=== PATIENT | male | born 1970 | race African-American/Black ===

== ENCOUNTER 2016-07-02 17:31 | Emergency (ER) | payer MEDICAID ==
[~2016-07-02] VITALS: Ht 175.3 cm; Wt 102.1 kg
[~2016-07-02 17:31] MED LIST: ASPIR 8181 MG ORAL; ATORVASTATIN CA20 MG ORAL; BACTRIM-DS1 EA ORAL; CEPHALEXIN500 M1 ORAL; LEVEMIR FL100 UNIT/1 SUBQ; LOVENOX150 MG/1 M SUBQ; METOPROLOL SUCC50 MG ORAL; NIACIN500 M2 ORAL; NOVOLIN R100 UNIT/1 SUBQ
[2016-07-02] MEDS ORDERED: NKM (17:58)
[2016-07-02] MEDS ORDERED: Metoprolol 5mg/5ml Inj IVP ONE (18:15)
[2016-07-02] MEDS ORDERED: Aspirin Baby 81mg ORAL ONE (18:15)
--- NOTE | 2016-07-02 18:38 | Emergency Room Report ---
History of Present Illness General Chief Complaint: Hypertension Source: Patient Present Illness HPI Patient is a 45-year-old male who presented after having increased chest tightness. Patient had been off of his blood pressure medication for approximately one month. Patient had prior history of diet-controlled diabetes. Patient's most recent hemoglobin A1c was slightly below 6. The patient reported having intermittent chest pressure. The patient had been previously hospital in 2003 after an onset of diabetes. He had run out of his medication. The patient was having additionally right-sided nasal congestion and headache if worsening for the past few weeks this was associated with some dark nasal discharge. Allergies: Coded Allergies: No Known Allergies (Unverified , 01/30/14) Patient History Past Medical History: see triage record Reviewed Nursing Documentation: PMH: Agreed, PSxH: Agreed Nursing Documentation-PMH Hx Cardiac Problems: No Hx Hypertension: Yes Hx Diabetes: Yes Hx Cancer: No Hx Gastrointestinal Problems: No Hx Neurological Problems: No Review of Systems All Other Systems: negative except mentioned in HPI Physical Exam Vital Signs Date Time Temp Pulse Resp B/P Pulse Ox O2 Delivery O2 Flow Rate FiO2 07/02/16 17:52 98.4 96 16 159/112 97 Room Air Sp02 EP Interpretation: reviewed, normal General Appearance: normal inspection, well appearing, no apparent distress, alert, GCS 15 Head: atraumatic ENT: normal ENT inspection, hearing grossly normal, normal voice Neck: normal inspection, full range of motion, supple, no bony tend Respiratory: normal inspection, lungs clear, normal breath sounds, no respiratory distress, no retraction, no wheezing Cardiovascular #1: regular rate, rhythm, no edema Gastrointestinal: normal inspection, normal bowel sounds, non tender, soft, no guarding, no hernia Genitourinary: no CVA tenderness Musculoskeletal: normal inspection, back normal, normal range of motion Neurologic: normal inspection, alert, oriented x3, responsive, reexaminer III-XII nml as tested, speech normal Psychiatric: normal inspection, judgement/insight normal, mood/affect normal Skin: normal inspection, normal color, no rash Medical Decision Making Diagnostic Impression: Primary Impression: ACS (acute coronary syndrome) Additional Impressions: Diabetes Hypertension Maxillary sinus mass ER Course Patient presented for chest pain.Differential diagnosis included but was not limited to acute coronary syndrome, pulmonary embolism, pneumonia, aortic dissection, shingles, pneumothorax, aortic dissection, esophageal rupture, pericarditis. Because of complexity of patient's case laboratory testing and imaging studies were ordered. EKG interpreted by me showed normal sinus rhythm with a rate of 82 J-point elevation was noted in the septal leads there is inferior ST depression and T- wave inversion which is changed from the patient's previous EKG from 2014. Patient was given IV metoprolol and aspirin. Right-sided EKG showed no elevation of ST segments. Patient was noted to have positive troponin as well as the positive CK-MB 0.75 and 10 respectively. The patient was given IV heparin bolus. The patient denied any chest pressure or tightness. The patient was discussed with Dr. Harris from [facility] for transfer for higher level of care. Dr. Harris states that [facility] has a cardiac catheterization lab with which is not available at [facility]. The patient was noted to have a headache and CT imaging of the head was obtained. Ct Head reading: Hyperdense mass measuring about 112 HU opacifying the entire visualized maxillary sinus, extending to ethmoid air cells and right frontal sinus suggest neoplastic etiologies, fungal infection and less likely inspissated secretion. Followup is recommended. Labs Test 07/02/16 18:40 White Blood Count 5.5 K/UL (4.8-10.8) Red Blood Count 4.57 M/UL (4.70-6.10) Hemoglobin 13.8 G/DL (14.2-18.0) Hematocrit 39.6 % (42.0-52.0) Mean Corpuscular Volume 87 FL (80-99) Mean Corpuscular Hemoglobin 30.2 PG (27.0-31.0) Mean Corpuscular Hemoglobin Concent 34.8 G/DL (32.0-36.0) Red Cell Distribution Width 11.0 % (11.6-14.8) Platelet Count 215 K/UL (150-450) Mean Platelet Volume 9.8 FL (6.5-10.1) Neutrophils (%) (Auto) 66.5 % (45.0-75.0) Lymphocytes (%) (Auto) 23.9 % (20.0-45.0) Monocytes (%) (Auto) 4.5 % (1.0-10.0) Eosinophils (%) (Auto) 3.5 % (0.0-3.0) Basophils (%) (Auto) 1.6 % (0.0-2.0) Urine Color Pale yellow Urine Appearance Clear Urine pH 6 (4.5-8.0) Urine Specific [place] 1.015 (1.005-1.035) Urine Protein Negative (NEGATIVE) Urine Glucose (UA) 2+ (NEGATIVE) Urine Ketones 1+ (NEGATIVE) Urine Occult Blood Negative (NEGATIVE) Urine Nitrite Negative (NEGATIVE) Urine Bilirubin Negative (NEGATIVE) Urine Urobilinogen Normal MG/DL (0.0-1.0) Urine Leukocyte Esterase Negative (NEGATIVE) Sodium Level 137 mEQ/L (135-145) Potassium Level 3.8 mEQ/L (3.4-4.9) Chloride Level 96 mEQ/L (98-107) Carbon Dioxide Level 24 mEQ/L (20-30) Anion Gap 17 (5-15) Blood Urea Nitrogen 12 mg/dL (7-23) Creatinine 1.0 mg/dL (0.7-1.2) Estimat Glomerular Filtration Rate > 60 mL/min (>60) Glucose Level 212 mg/dL (74-106) Calcium Level 9.4 mg/dL (8.6-10.2) Total Bilirubin 0.7 mg/dL (0.0-1.2) Aspartate Amino Transf (AST/SGOT) 29 U/L (5-40) Alanine Aminotransferase (ALT/SGPT) 17 U/L (3-41) Alkaline Phosphatase 59 U/L (40-129) Total Creatine Kinase 189 U/L (38-174) Creatine Kinase MB 12.4 ng/mL (< 6.7) Creatine Kinase MB Relative Index 6.5 Troponin I 0.75 ng/mL (<=0.30) Total Protein 7.7 g/dL (6.6-8.7) Albumin 4.6 g/dL (3.5-5.2) Globulin 3.1 g/dL Albumin/Globulin Ratio 1.4 (1.0-2.7) Urine Opiates Screen Negative (NEGATIVE) Urine Barbiturates Screen Negative (NEGATIVE) Phencyclidine (PCP) Screen Negative (NEGATIVE) Urine Amphetamines Screen Negative (NEGATIVE) Urine Benzodiazepines Screen Negative (NEGATIVE) Urine Cocaine Screen Negative (NEGATIVE) Urine Marijuana (THC) Screen Negative (NEGATIVE) EKG Diagnostic Results Rate: normal Rhythm: NSR ST Segments: other - inferior st depression, jpoint elevation Rhythm Strip Diag. Results EP Interpretation: yes Rhythm: NSR, no PVC's, no ectopy Chest X-Ray Diagnostic Results EP Interpretation: Yes Findings: no consolidation, no effusion, no pneumothorax, no acute cardiopulmonary disease Number of Views: 1 CT/MRI/US Diagnostic Results CT/MRI/US Diagnostic Results : Imaging Test Ordered: ct Head Impression Hyperdense mass measuring about 112 HU opacifying the entire visualized maxillary sinus, extending to ethmoid air cells and right frontal sinus suggest neoplastic etiologies, fungal infection and less likely inspissated secretion. Last Vital Signs Date Time Temp Pulse Resp B/P Pulse Ox O2 Delivery O2 Flow Rate FiO2 07/02/16 17:52 98.4 96 16 159/112 97 Room Air Status: improved Disposition: XFER SHT-TRM HOSP Condition: Serious Referrals: [facility],REFERRING (PCP) Miguel Pineda Jul 02, 2016 18:38
[2016-07-02 18:59] LABS: BASOPHILS % (AUTO) 1.6 % (0.0-2.0); EOSINOPHILS % (AUTO) 3.5 % (0.0-3.0); LYMPHOCYTES % (AUTO) 23.9 % (20.0-45.0); MEAN CORPUSCULAR HEMOGLOBIN 30.2 PG (27.0-31.0); MEAN CORPUSCULAR HGB CONC 34.8 G/DL (32.0-36.0); MEAN CORPUSCULAR VOLUME 87 FL (80-99); MEAN PLATELET VOLUME 9.8 FL (6.5-10.1); MONOCYTES % (AUTO) 4.5 % (1.0-10.0); NEUTROPHILS % (AUTO) 66.5 % (45.0-75.0); PLATELET COUNT 215 K/UL (150-450); RED BLOOD COUNT 4.57 M/UL (4.70-6.10); WHITE BLOOD COUNT 5.5 K/UL (4.8-10.8)
[2016-07-02 19:07] LABS: APPEARANCE,URINE CLEAR; KETONES,URINE 1+ (NEGATIVE); LEUKOCYTE ESTERASE ,URINE NEGATIVE (NEGATIVE); NITRITE,URINE NEGATIVE (NEGATIVE); PH,URINE 6 (4.5-8.0); PROTEIN,URINE NEGATIVE (NEGATIVE); UROBILINOGEN,URINE NORMAL MG/DL (0.0-1.0)
[2016-07-02 19:15] LABS: ALANINE AMINOTRANSFERASE 17 U/L (3-41); ALBUMIN/GLOBULIN RATIO 1.4 (1.0-2.7); ANION GAP 17 (5-15); ASPARTATE AMINO TRANSFERASE 29 U/L (5-40); CALCIUM 9.4 mg/dL (8.6-10.2); CARBON DIOXIDE 24 mEQ/L (20-30); CHLORIDE 96 mEQ/L (98-107); GLOMERULAR FILTRATION RATE > 60 mL/min (>60); HEMOLYSIS 21; POTASSIUM 3.8 mEQ/L (3.4-4.9); SODIUM 137 mEQ/L (135-145); TOTAL PROTEIN 7.7 g/dL (6.6-8.7)
[2016-07-02 19:16] VITALS: BP 143/99
[2016-07-02 19:25] LABS: CKMB 12.4 ng/mL (< 6.7)
[2016-07-02 19:33] LABS: TROPONIN I 0.75 ng/mL (<=0.30)
[2016-07-02] MEDS ORDERED: cefTRIAXone 1 GM in NS 55 ML IVPB ONE (19:45)
[2016-07-02] MEDS ORDERED: Heparin 5000 units/ml inj IV ONE (19:45)
[2016-07-02 21:15] VITALS: BP 150/93
[2016-07-02 22:30] VITALS: BP 147/88
--- NOTE | 2016-07-03 08:48 | Diagnostic Imaging Report ---
Indications: Headache, high blood pressure, pressure in head and chest Technique: Spiral acquisitions obtained through the brain. Angled axial and coronal 70 and sagittal 5 x 5 mm slices were reconstructed. Total dose length product 1318 mGycm. CTDI vol(s) 70 mGy Comparison: None Findings: No acute hemorrhage or edema. No mass effect or midline shift. Normal juarez-white differentiation. Normal sized ventricles and extra-axial CSF spaces. There is extensive confluent right maxillary and ethmoid sinus disease, with extensive destruction of sinus smith is also extends into the right frontal and sphenoid sinuses. Is high attenuation center of the maxillary opacity. Visualized orbits are unremarkable. Impression: Negative for acute intracranial bleed or mass effect Extensive sinus disease there is central high attenuation raises concern for neoplasm or fungal infection. Consider ENT consult This agrees with the preliminary interpretation provided overnight by [facility]. The CT scanner at [facility] is accredited by the [employer] and the scans are performed using protocols designed to limit radiation exposure to as low as reasonably achievable to attain images of sufficient resolution adequate for diagnostic evaluation.
--- NOTE | 2016-07-03 10:19 | Diagnostic Imaging Report ---
Indication: SOB Technique: One view of the chest Comparison: none Findings: The heart is enlarged. The lungs and pleural spaces are clear. Impression: Cardiomegaly. No acute process
--- NOTE | 2016-07-05 09:34 | Cardiology Report ---
APPROVED REPORT EKG Measurement Heart [id number] Normal sinus rhythm Possible Left atrial enlargement Left ventricular hypertrophy with repolarization abnormality Cannot rule out Septal infarct, age undetermined Inferior wall ischemia. Abnormal ECG
== END 2016-07-02 22:30 | disposition short-term general hospital (02) ==
LOC: EMR 18:21
DX: I24.9 Acute ischemic heart disease, unspecified (principal); I10 Essential (primary) hypertension; E11.9 Type 2 diabetes mellitus without complications; J34.89 Other specified disorders of nose and nasal sinuses
CPT/HCPCS: 36415; 70450; 71010; 80053; 80300; 81003; 82550; 82553; 84484; 85025; 93005; 96361; 96374; 96375; 99284; J0696; J1644